=== PATIENT | male | born 1940 | race Caucasian/White ===

== ENCOUNTER 2022-09-02 12:25 | Emergency (ER) | payer OTHER, SELFPAY ==
[2022-09-02 12:33] VITALS: BP 114/73; PULSE 97; RESP 16; TEMP 36.2; O2SAT 96; BMI 30.4
--- NOTE | 2022-09-02 12:41 | ED.EYEPROB ---
HPI - Eye Problem General Time Seen by Provider: 12:41 Date Seen: 09/02/22 Chief complaint: Eye Problems Stated complaint: irritation in eyes Time Seen by Provider: 09/02/22 12:40 Source: patient and RN notes reviewed Mode of arrival: ambulatory Limitations: no limitations History of Present Illness HPI Narrative: Patient is a very pleasant 82-year-old gentleman with recent history of cold-like symptoms, significant COVID infection in April of this year who comes to the emergency room with complaints of red painful eyes. Patient notes that 4 days ago he had the sensation of a foreign body in his right eye. He states that he could feel it with his finger and that it was between his eye and eyelid. He never did see it but felt like he was able to get some debris out of his eye. The redness spread to both eyes and is now associated with a headache mainly on the left side. They note that he had dried debris on his eyelids. Patient's tried some [id number] medications and these did not seem to be helpful. They also tried irrigating his eyes but seems to be getting worse. Unfortunately we do not have a list of the medications [id number] that they had use. No fever at this time. No visual changes. Patient has no history of glaucoma. Related Data Home Medications Medication Instructions Recorded Confirmed amiodarone 200 mg tablet 200 mg PO BID 09/02/22 09/02/22 carvedilol 25 mg tablet 25 mg PO BID 09/02/22 09/02/22 furosemide 40 mg tablet 40 mg PO DAILY 09/02/22 09/02/22 lisinopril 2.5 mg tablet 2.5 mg PO DAILY 09/02/22 09/02/22 pravastatin 10 mg tablet 10 mg PO QPM 09/02/22 09/02/22 trazodone 50 mg tablet 50 mg PO QPM 09/02/22 09/02/22 warfarin 1 mg tablet PO 09/02/22 warfarin 2.5 mg tablet PO 09/02/22 Allergies Allergy/AdvReac Type Severity Reaction Status Date / Time No Known Drug Allergies Allergy Verified 09/02/22 12:36 Review of Systems Status of ROS: Reports: 6 or more systems reviewed and unremarkable except as noted in History and below Const: Denies: fever Eyes: Reports: eye discomfort and eye discharge; Denies: change in vision ENMT: Denies: difficulty swallowing Cardio: Denies: chest pain Resp: Reports: cough GI: Denies: nausea or difficulty swallowing Neuro: Reports: headache PFSH PFSH Social History Smoking Status: Unknown if ever smoked Exam Narrative: Exam Narrative: Alert and oriented. Sukhjinder and his are very nice people. His EOM is full and pupils are equal round. There does not appear to be any photophobia. Without staining or slit lamp I can see a sq shaped corneal abrasion at approximately 0700 hours on the right cornea. I do flipped as eyelids they are injected hyperemic. He has scleral injection 2 with some mild scleral edema. He has erythema on eyelids and surrounding eyes. It is more boggy edema that I am seeing then breana swelling. This area is not excessively warm to the touch. Breathing without difficulty. Const: Vital Signs, click to edit/add: Vital Signs - 24 hr 09/02/22 12:33 Temperature 97.1 F L Pulse Rate [Pulse Oximeter] 97 Respiratory Rate 16 Blood Pressure [Ri ght Upper Arm] 114/73 Pulse Oximetry 96 Oxygen Delivery Me thod Room Air Course Course Hospital Course: At this time differential diagnosis includes but is not limited to conjunctivitis with corneal abrasion, elevated interocular pressure, chemosis, allergic reaction. Normally with corneal abrasion I would use numbing medication and stain patient's eye. However, I do feel strongly that Sukhjinder needs to see Optometry for an accurate pressure reading in both eyes at given the recent headache with red eyes. Perhaps this is conjunctivitis but I feel that he needs a specialty consultation. I certainly do not want to use eyedrops at this time only to have to repeat them later as this is associated with softening of the cornea. Vital Signs Vital signs: Initial Vital Signs Temperature 97.1 F L 09/02/22 12:33 Temperature Source Temporal Artery Scan 09/02/22 12:33 Pulse Rate 97 09/02/22 12:33 Respiratory Rate 16 09/02/22 12:33 Blood Pressure 114/73 09/02/22 12:33 Blood Pressure Mean 86 09/02/22 12:33 Blood Pressure Position Sitting 09/02/22 12:33 Pulse Oximetry 96 09/02/22 12:33 Oxygen Delivery Method Room Air 09/02/22 12:33 Vital Signs Temperature 97.1 F L 09/02/22 12:33 Pulse Rate 97 09/02/22 12:33 Respiratory Rate 16 09/02/22 12:33 Blood Pressure 114/73 09/02/22 12:33 Pulse Oximetry 96 09/02/22 12:33 Oxygen Delivery Method Room Air 09/02/22 12:33 Temperature 97.1 F L 09/02/22 12:33 Pulse Rate 97 09/02/22 12:33 Respiratory Rate 16 09/02/22 12:33 Blood Pressure 114/73 09/02/22 12:33 Pulse Oximetry 96 09/02/22 12:33 Oxygen Delivery Method Room Air 09/02/22 12:33 MDM - Eye Problem MDM Narrative Medical decision making narrative: 1. Right corneal abrasion 2. Bilateral eye redness and discomfort 3. Disposition-patient has no recent history of antibiotic use specifically in neomycin drops. He is presenting today with bilateral red eyes. It could be something as simple as conjunctivitis but given its appearance I do feel that he should see Optometry and we have arranged an appointment today at 0330 with [facility]. They do feel comfortable with this plan. I feel that is unfortunate we cannot accommodate there needs at this time. I do not see anything emergent today that needs immediate intervention but I do think patient likely needs to be on antibiotic for may be steroid drops. We typically do not do steroids out of the emergency room but refer to Optometry for that sort of treatment. They were very gracious in their understanding. Address and phone number for [facility] given to family. Appointment made. Discharge Plan Discharge Clinical Impression: Eye redness, Corneal abrasion Patient Disposition: Home, Self-Care Condition: Unchanged Additional Instructions: Proceed to [facility] for an appointment at 1530 hours. They did state you could come early but could not guarantee they could get you in earlier. The address is [address] [place] [address] The phone number for them is [phone] Prescriptions: No Action furosemide 40 mg tablet 40 mg PO DAILY carvedilol 25 mg tablet 25 mg PO BID trazodone 50 mg tablet 50 mg PO QPM amiodarone 200 mg tablet 200 mg PO BID warfarin 2.5 mg tablet PO pravastatin 10 mg tablet 10 mg PO QPM warfarin 1 mg tablet PO lisinopril 2.5 mg tablet 2.5 mg PO DAILY Follow Up/Referrals: Provider,Not a Local [Primary Care Provider] - Stand Alone Forms: [employer] Info Instructions
== END 2022-09-02 13:30 | disposition home or self-care (01) ==
PROVIDERS: Emergency Provider Family Medicine
DX: S05.01XA Injury of conjunctiva and corneal abrasion without foreign body, right eye, initial encounter (principal); H57.13 Ocular pain, bilateral
CPT/HCPCS: 99282; 99283